=== PATIENT | male | born 1995 | race Hispanic/Latino ===

== ENCOUNTER 2016-06-26 16:13 | Emergency (ER) | payer OTHER ==
[~2016-06-26] VITALS: Ht 177.8 cm; Wt 61.4 kg
[2016-06-26 16:27] VITALS: BP 135/83; PULSE 106; RESP 18; O2SAT 98
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
== END 2016-06-26 18:00 | disposition home or self-care (01) ==
LOC: SED 16:13
DX: S40.012A Contusion of left shoulder, initial encounter (principal); V43.52XA Car driver injured in collision with other type car in traffic accident, initial encounter; Y93.89 Activity, other specified; Y92.410 Unspecified street and highway as the place of occurrence of the external cause; Y99.8 Other external cause status